=== PATIENT | female | born 1970 | race Two or more races ===

== ENCOUNTER → 2017-04-24 | Outpatient (CLI) | payer OTHER ==
[~2017-04-24] MED LIST: AMLO1CAP8 PO
== END | disposition home or self-care (01) ==
LOC: CARD 08:28
PROVIDERS: ATTEND Psychiatry & Neurology Neurology
DX: Z51.11 Encounter for antineoplastic chemotherapy (principal); C79.31 Secondary malignant neoplasm of brain; C34.32 Malignant neoplasm of lower lobe, left bronchus or lung; J44.9 Chronic obstructive pulmonary disease, unspecified; T50.8X4A Poisoning by diagnostic agents, undetermined, initial encounter
CPT/HCPCS: 95819